=== PATIENT | female | born 1960 | race Caucasian/White ===

== ENCOUNTER 2016-06-29 08:25 | Emergency (ER) | payer OTHER ==
[2016-06-29 08:57] VITALS: BP 137/87
--- NOTE | 2016-06-29 09:36 | UC ---
Respiratory Complaint HPI - HPI Summary HPI Summary: Dry cough, fevers between 100-101F, pain in chest & head with cough, mild stomach upset, nasal congestion without drainage starting 5 days ago. Tried going back to work today but did not feel well enough. Last fever last night 100.4F. - History of Current Complaint Chief Complaint: UCGeneralIllness Stated Complaint: SORE THROAT CONGESTION Time Seen by Provider: 06/29/16 09:11 Hx Obtained From: Patient ?: No Onset/Duration: Gradual Onset, Lasting Days Timing: Constant Severity Initially: Moderate Severity Currently: Moderate Pain Intensity: 0 Pain Scale Used: 0-10 Numeric Character: Cough: Productive Aggravating Factors: Deep Breaths, Recumbent Position Alleviating Factors: Upright Position Associated Signs And Symptoms: Positive: Fever, Chills, Nasal Congestion. Negative: Wheezing - Allergies/Home Medications Allergies/Adverse Reactions: Allergies Allergy/AdvReac Type Severity Reaction Status Date / Time No Known Allergies Allergy Verified 02/05/15 07:15 Home Medications: Home Medications Hydrochlorothiazide [Microzide-] 25 mg 06/29/16 [History] Losartan Potassium [Cozaar] 06/29/16 [History] Pseudoephedrine-Guaifenesin [Mucinex D 60-600 mg] 06/29/16 [History] PMH/Surg Hx/FS Hx/Imm Hx Endocrine History Of: Denies: Diabetes Cardiovascular History Of: Reports: Hypertension - MEDICATION CONTROLLED Denies: Congestive Heart Failure Respiratory History Of: Denies: COPD, Asthma GI/ History Of: Denies: Renal Disease Cancer History Of: Denies: Breast Cancer - Surgical History Surgical History: Yes Surgery Procedure, Year, and Place: [id number] [facility] 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 Alcohol Use: Occasionally Substance Use Type: None Smoking Status (MU): Never Smoked Tobacco Review of Systems Constitutional: Fever, Chills Skin: Negative Eyes: Negative ENT: Sore Throat, Other - stuffy nose Respiratory: Cough Cardiovascular: Negative Gastrointestinal: Negative Genitourinary: Negative Motor: Negative Neurovascular: Negative Musculoskeletal: Negative Neurological: Negative Psychological: Negative All Other Systems Reviewed And Are Negative: Yes Physical Exam Triage Information Reviewed: Yes Appearance: Well-Appearing, Well-Nourished, Pain Distress - with cough Vital Signs: Initial Vital Signs Temp 97.7 F 06/29/16 08:51 Pulse 70 06/29/16 08:51 Resp 18 06/29/16 08:51 BP 137/87 06/29/16 08:51 Pulse Ox 98 06/29/16 08:51 Eye Exam: Normal Eyes: Positive: Conjunctiva Clear ENT: Positive: Hearing grossly normal, Pharynx normal, Nasal congestion, TMs normal Dental Exam: Normal Neck exam: Normal Neck: Positive: Supple, Nontender, No Lymphadenopathy Respiratory Exam: Other - frequent dry and productive cough Respiratory: Positive: No respiratory distress, No accessory muscle use, Rhonchi - clear with cough Cardiovascular Exam: Normal Cardiovascular: Positive: RRR, No Murmur Musculoskeletal Exam: Normal Neurological Exam: Normal Psychological Exam: Normal Skin Exam: Normal UC Diagnostic Evaluation - Laboratory O2 Sat by Pulse Oximetry: 98 Respiratory Course/Dx - Differential Dx/Diagnosis Provider Diagnoses: influenza Discharge - Discharge Plan Condition: Stable Disposition: HOME Prescriptions: Benzonatate CAP* [Tessalon CAP*] 100 mg PO TID PRN #30 cap PRN Reason: Cough Guaifenesin-Codeine [Guaiatussin AC] 5 - 10 ml PO Q6H #240 ml MDD 40mL Patient Education Materials: Influenza (ED) Forms: *Work Release Referrals: Omar Colon MD [Primary Care Provider] - If Needed Additional Instructions: Call or return if you develop increasing fever, shortness of breath, chest pain , bloody sputum, or otherwise worsen. If you have not improved at all after several days, contact your primary care physician or return here.
== END 2016-06-29 09:31 | disposition home or self-care (01) ==
LOC: UCEAST 08:25
DX: J11.1 Influenza due to unidentified influenza virus with other respiratory manifestations (principal); I10 Essential (primary) hypertension
CPT/HCPCS: 99212; G0463

== ENCOUNTER 2016-12-01 09:09 | Emergency (ER) | payer OTHER ==
[2016-12-01 09:18] VITALS: BP 145/77
--- NOTE | 2016-12-01 09:58 | RAD ---
INDICATION: Left ankle injury. TECHNIQUE: 3 views of the left ankle were obtained. FINDINGS: Soft tissue swelling is noted along the anterolateral aspect of the ankle. There is a small curvilinear bony density adjacent to the distal fibular tip most consistent with a small nondisplaced avulsion fracture fragment. Joint spaces appear maintained. IMPRESSION: SOFT TISSUE SWELLING AND SMALL AVULSION FRACTURE FRAGMENT ARISING FROM THE DISTAL FIBULA.
[2016-12-01] MEDS ORDERED: Acetaminophen TAB* 325 MG PO ONE (10:03)
--- NOTE | 2016-12-01 10:03 | RAD ---
Indication: Medial proximal fibula pain following ankle injury. Comparison: Ankle of the same day. Technique: AP and lateral views LEFT lower leg. Report: Subtle avulsion fracture at the caudal margin of the lateral malleolus with overlying soft tissue swelling. Suggestion of a nonossifying fibroma at the lateral posterior aspect of the distal metaphysis and lateral malleolus of the fibula measuring up to 4.8 cm cephalocaudal by 1.0 cm AP by 0.7 cm transverse. While the appearance is not entirely specific the lesion demonstrates a well-defined transition zone with thin sclerotic margin consistent with benign etiology. No more proximal fracture of the ulna or fracture of the tibia evident. Normal articular alignment. IMPRESSION: 1. Subtle nondisplaced avulsion fracture caudal margin lateral malleolus. No additional fracture of the fibula or tibia. 2. 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
--- NOTE | 2016-12-01 10:08 | UC ---
Dary Ash Thomas, scribed for Darlin Madison MD on 12/01/16 at 0935 . Lower Extremity/Ankle HPI - HPI Summary HPI Summary: The pt is a 56 y/o F accompanied by her mother and presenting to [facility] [place] c/o L ankle pain for the last 2 days s/p rolling it inward while walking along roadside for exercise. The pain began immediately after the injury. Her pain is in her ankle, although she notes that some pain radiates upward, toward knee. She rates the pain 5/10 and describes the pain as an ache and tightness. The pain is alleviated by ice and medication (Motrin, 800mg). The pain is worsened by exercise, standing, and ambulation. Pt additionally c/o toe numbness , L leg swelling, and abrasion to R knee. Pt denies head trauma, blood out of ear, syncope, LOC. She is on baby aspirin at home. Since her fall, she has been walking with a limp secondary to the pain. No analgesia today. No weakness. tdap utd pt thinks - will confirm with PCP in November at scheduled appt PMHx: L ankle Fx (8 years ago), HTN. PSHx: hysterectomy, CSP fusion, and lower back laminectomies. SHx: no tobacco, occasional alcohol, no illicit drugs. FHx: HTN. She believes that her last tetanus shot was within the last 10 years, but she is unsure. Patients medication reviewed this visit. - History of Current Complaint Chief Complaint: UCLowerExtremity Stated Complaint: ANKLE INJURY Time Seen by Provider: 12/01/16 09:18 Hx Obtained From: Patient, Family/Manager French - mother in room Onset/Duration: Sudden Onset, Lasting Days - 2 days s/p rolling ankle, Still Present Severity Currently: Moderate Pain Intensity: 5 Pain Scale Used: 0-10 Numeric Aggravating Factor(s): Standing, Ambulation, Other - POS: movement Alleviating Factor(s): Ice, OTC Meds Related History: Other - everted - Allergies/Home Medications Allergies/Adverse Reactions: Allergies Allergy/AdvReac Type Severity Reaction Status Date / Time No Known Allergies Allergy Verified 07/08/16 09:07 Home Medications: Home Medications Biotin [Biotin Maximum Strength] 10,000 mcg PO DAILY 12/01/16 [History Confirmed 12/01/16] PMH/Surg Hx/FS Hx/Imm Hx Previously Healthy: No - L ankle Fx Cardiovascular History: Hypertension - Surgical History Surgical History: Yes Surgery Procedure, Year, and Place: [id number]. [place] [place]. [place] LAMINECTOMIES L4/L5 [place] [place] Family History Known Family History: Positive: Hypertension - Social History Occupation: Employed Full-time - administrative assistant front desk Alcohol Use: Occasionally Substance Use Type: None Smoking Status (MU): Never Smoked Tobacco Review of Systems Constitutional: Negative Skin: Other - POS: abrasion to R knee, contusion Eyes: Negative ENT: Negative Respiratory: Negative Cardiovascular: Negative Gastrointestinal: Negative Genitourinary: Negative Motor: Negative Neurovascular: Negative Musculoskeletal: Other: - POS: L ankle pain (09/08, onset two days ago s/p rolling it on sidewalk, ache/tightness, relieved by OTC meds and ice, aggravated by movement), L leg swelling Neurological: Numbness - to toes of L feet Psychological: Negative All Other Systems Reviewed And Are Negative: Yes Physical Exam Triage Information Reviewed: Yes Appearance: Well-Appearing, No Pain Distress, Well-Nourished Vital Signs: Initial Vital Signs Temp 97.4 F 12/01/16 09:15 Pulse 70 12/01/16 09:15 Resp 16 12/01/16 09:15 BP 145/77 12/01/16 09:15 Pulse Ox 100 12/01/16 09:15 Vital Signs Reviewed: Yes Eye Exam: Normal Eyes: Positive: Conjunctiva Clear ENT Exam: Normal ENT: Positive: Normal ENT inspection, Hearing grossly normal, Pharynx normal, TMs normal Neck exam: Normal Neck: Positive: Supple, Nontender Respiratory Exam: Normal Respiratory: Positive: Chest non-tender, Lungs clear, Normal breath sounds, Other: - 2+ DP, PT CBT <2 sec Cardiovascular Exam: Normal Cardiovascular: Positive: RRR, No Murmur, Pulses Normal Musculoskeletal: Positive: Other: - + SLE left without pain No pain with palpation, ligament testing left knee no edema left knee + TTP left lateral malleolus. Mild ecchymosis and edema + flex/ext ankle with discomfort lateral edge +great toe extension + flex/ext toes without pain No pain aling tarsal, metatarsals Neurological: Positive: Other: - + sensation throughout foot Psychological Exam: Normal Skin: Positive: Other - abrasion right knee - non suturable, scabbed no erythema , discharge Diagnostics - Radiology Ankle XR Xray Interpretation: Positive (See Comments) - SOFT TISSUE SWELLING AND SMALL AVULSION FRACTURE FRAGMENT ARISING FROM THE DISTAL FIBULA. Radiology Interpretation Completed By: Radiologist XR Lower Extremity Xray Interpretation: Positive (See Comments) - 1. Subtle nondisplaced avulsion fracture caudal margin lateral malleolus. No additional fracture of the fibula or tibia. 2. 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 Radiology Interpretation Completed By: Radiologist Re-Evaluation - Re-Evaluation First Eval Re-Evaluation Time: 10:07 Change: Unchanged Comment: Informed of XR results. reji. air splint. crutches. apap. work note Lower Extremity Course/Dx - Course Course Of Treatment: The patient is a 56 y/o F presenting to [facility] c/o L ankle pain s/p rolling her ankle on the sidewalk two days ago. Blood pressure noted and patient informed to follow up with PCP. Pt thinks tdap is UTD - will follow -up with PCP. She will follow up with Dr. Fairchild, previously seen for ankle. reji. ice. crutches. air splint. work note. motrin/apap - Differential Dx/Diagnosis Provider Diagnoses: left distal fibular avulsion fracture Discharge - Discharge Plan Condition: Stable Disposition: HOME Patient Education Materials: Avulsion Fracture (ED) Forms: *Work Release Referrals: Kayode Fairchild MD [Medical Doctor] - 3 Days Additional Instructions: -wear reji wrap for comfort and support. -use crutches until you can walk normally without a limp -apply ice (20 min at a time) every 2-3 hours for the next 2 days - Okay to alternate ibuprofen (Advil, Motrin) and tylenol every 3 hours for pain. Take with food -Elevate your leg - this will help with swelling and pain -Contact Dr. Fairchild, your orthopedic surgeon, to arrange a follow-up this week. Contact your doctor or return with questions or concerns The documentation as recorded by the Dary spence Thomas accurately reflects the service I personally performed and the decisions made by me, Darlin Madison MD.
== END 2016-12-01 10:16 | disposition home or self-care (01) ==
LOC: UCEAST 09:09
DX: S82.65XA Nondisplaced fracture of lateral malleolus of left fibula, initial encounter for closed fracture (principal); S80.211A Abrasion, right knee, initial encounter; W18.39XA Other fall on same level, initial encounter; Y93.01 Activity, walking, marching and hiking; Y92.89 Other specified places as the place of occurrence of the external cause; I10 Essential (primary) hypertension; Z90.710 Acquired absence of both cervix and uterus
CPT/HCPCS: 99213; A9270-GY; G0463

== ENCOUNTER 2017-06-29 08:57 | Day surgery (SDC) | payer OTHER ==
[~2017-06-29 08:57] MED LIST: Acetaminophen TAB* 325 MG PO PRN; Buffered Lidocaine 0.9% SYRIN* 5 ML/SYR SYRINGE INTRADERM ONE; Cyclopentolate 1% OPTH.SOL* 2 ML BTL ONE; Ketorolac 0.5% OPHTH (NF) 0.5 % 5 ML BTL ONE; Lidocaine 1% MPF* 2 ML VIAL ONE; Lidocaine 2% EPI 1:200000 MPF* 20 ML VIAL ONE; Midazolam* 1 MG/ML 2 ML VIAL (2 MG) ONE; Neomycin/Polymy/Dex OPTH.SUSP* MAXITROL 0.1% 5 ML ONE; Phenylephrine 2.5% OPTH.SOL* 2 ML BTL ONE; Povidone Iodine 5% OPTH* 30 ML BTL ONE; Proparacaine 0.5% OPHTH.SOL* 15 ML BTL ONE; acetaZOLAMIDE TAB* 250 MG ONE
[2017-06-29] MEDS ORDERED: Midazolam* 1 MG/ML 2 ML VIAL (2 MG) ONE (11:15)
[2017-06-29 11:59] VITALS: BP 149/80
--- NOTE | 2017-06-29 14:25 | OP ---
DATE OF OPERATION: 06/29/2017. DATE OF : 1960. SURGEON: Florentino Owen M.D. PREOPERATIVE DIAGNOSIS: Cataract right eye. POSTOPERATIVE DIAGNOSIS: Cataract right eye. OPERATIVE PROCEDURE: Extracapsular cataract extraction with intraocular lens implant right eye. PROCEDURE: The patient was brought to the operating room after being given 1/2% Alcaine with epineph rine drops in the preoperative area. The eye was prepped and draped in the usual sterile fashion. S terile drape and eyelid speculum were placed. Again, topical 1/2% Alcaine with epinephrine was given . A paracentesis incision was made at the 9 o'clock position with the No.75 blade. Clear cornea inc ision 2.2 x 2.2-mm was created at the 12 o'clock position starting at the anterior limbus using the 2 .2-mm keratome. The anterior chamber was irrigated with 0.4 mL of 1% non-preservative intracameral l idocaine and filled with DisCoVisc. A capsulorrhexis was completed using the cystotome and the Utrat a forceps. Hydrodissection was performed with balanced salt solution. The lens nucleus was removed w ith the Phacoemulsification handpiece without incident. Cortex was removed with the irrigation-aspir ation handpiece. The capsular bag was re-inflated using DisCoVisc and an [id number] implant was inser aziza with the shooter, oriented to the 101 degree meridian. Horizontal reference shaikh made with the patient in the seated position in the preoperative area. The irrigation-aspiration handpiece was use d to remove all residual DisCoVisc. The eye was refilled with balanced salt solution and the wound c hecked and found to be watertight. Topical Maxitrol drops were given. [id number]/[facility] #: [id number]
== END 2017-06-29 11:52 | disposition home or self-care (01) ==
LOC: OREAST 08:57
PROVIDERS: ATTEND Specialist
DX: H25.11 Age-related nuclear cataract, right eye (principal); H53.022 Refractive amblyopia, left eye; I10 Essential (primary) hypertension; Z68.29 Body mass index [BMI] 29.0-29.9, adult
CPT/HCPCS: A9270-GY; J2250; V2787

== ENCOUNTER 2017-07-06 06:41 | Day surgery (SDC) | payer OTHER ==
[~2017-07-06 06:41] MED LIST changes: -Cyclopentolate 1% OPTH.SOL* 2 ML BTL ONE; -Ketorolac 0.5% OPHTH (NF) 0.5 % 5 ML BTL ONE; -Lidocaine 1% MPF* 2 ML VIAL ONE; -Lidocaine 2% EPI 1:200000 MPF* 20 ML VIAL ONE; -Midazolam* 1 MG/ML 2 ML VIAL (2 MG) ONE; -Neomycin/Polymy/Dex OPTH.SUSP* MAXITROL 0.1% 5 ML ONE; -Phenylephrine 2.5% OPTH.SOL* 2 ML BTL ONE; -Povidone Iodine 5% OPTH* 30 ML BTL ONE; -Proparacaine 0.5% OPHTH.SOL* 15 ML BTL ONE; -acetaZOLAMIDE TAB* 250 MG ONE
[2017-07-06] MEDS ORDERED: Midazolam* 1 MG/ML 2 ML VIAL (2 MG) ONE ×2 (07:45→08:01)
[2017-07-06 08:48] VITALS: BP 140/70
[2017-07-06] MEDS ORDERED: acetaZOLAMIDE TAB* 250 MG ONE (12:07)
[2017-07-06] MEDS ORDERED: Lidocaine 2% EPI 1:200000 MPF* 20 ML VIAL ONE (12:07)
[2017-07-06] MEDS ORDERED: Cyclopentolate 1% OPTH.SOL* 2 ML BTL ONE (12:07)
[2017-07-06] MEDS ORDERED: Neomycin/Polymy/Dex OPTH.SUSP* MAXITROL 0.1% 5 ML ONE (12:07)
[2017-07-06] MEDS ORDERED: Ketorolac 0.5% OPHTH (NF) 0.5 % 5 ML BTL ONE (12:07)
[2017-07-06] MEDS ORDERED: Phenylephrine 2.5% OPTH.SOL* 2 ML BTL ONE (12:07)
[2017-07-06] MEDS ORDERED: Povidone Iodine 5% OPTH* 30 ML BTL ONE (12:07)
[2017-07-06] MEDS ORDERED: Lidocaine 1% MPF* 2 ML VIAL ONE (12:07)
[2017-07-06] MEDS ORDERED: Proparacaine 0.5% OPHTH.SOL* 15 ML BTL ONE (12:08)
--- NOTE | 2017-07-06 20:10 | OP ---
DATE OF OPERATION: 07/06/17 [facility] DATE OF : 60 SURGEON: Florentino Owen M.D. PREOPERATIVE DIAGNOSIS: Cataract, left eye. POSTOPERATIVE DIAGNOSIS: Cataract, left eye. OPERATIVE PROCEDURE: Extracapsular cataract extraction with intraocular lens implant left eye. DESCRIPTION OF PROCEDURE: The patient was brought to the operating room after being given 1/2% Alcaine with epinephrine drops in the preoperative area. The eye was prepped and draped in the usual sterile fashion. Sterile drape and eyelid speculum were placed. Again, topical 1/2% Alcaine with epinephrine was given. A paracentesis incision was made at the 3 o'clock position with the No.75 blade. Clear cornea incision 2.2 x 2.2-mm was created at the 6 o'clock position starting at the anterior limbus using the 2.2-mm keratome. The anterior chamber was irrigated with 0.4 mL of 1% non-preservative intracameral lidocaine and filled with DisCoVisc. A capsulorrhexis was completed using the cystotome and the Utrata forceps. Hydrodissection was performed with balanced salt solution. The lens nucleus was removed with the Phacoemulsification handpiece without incident. Cortex was removed with the irrigation-aspiration handpiece. The capsular bag was re-inflated using DisCoVisc and an [id number] implant was inserted with the shooter oriented to the 104-degree meridian. The irrigation-aspiration handpiece was used to remove all residual DisCoVisc. The eye was refilled with balanced salt solution, and the wound checked and found to be watertight. Topical Maxitrol drops were given. [id number]/[facility] #: [id number] [facility] [place]
== END 2017-07-06 08:37 | disposition home or self-care (01) ==
LOC: OREAST 06:41
PROVIDERS: ATTEND Specialist
DX: H25.12 Age-related nuclear cataract, left eye (principal); H53.022 Refractive amblyopia, left eye; I10 Essential (primary) hypertension; E66.3 Overweight
CPT/HCPCS: A9270-GY; J2250; V2787

== ENCOUNTER 2017-11-25 06:54 | Day surgery (SDC) | payer OTHER ==
[~2017-11-25 06:54] MED LIST changes: -Acetaminophen TAB* 325 MG PO PRN
[2017-11-25] MEDS ORDERED: ceFAZolin 2 GM PREMIX (*) 2 GM/50 ML BAG IVPB ONE (07:04)
[2017-11-25] MEDS ORDERED: Bupivacaine 0.5% PF 10 ML VIAL INJ ONE (08:08)
[2017-11-25] MEDS ORDERED: EPINEPHRINE 1 MG/ML 1 ML VIAL ONE (08:08)
[2017-11-25] MEDS ORDERED: Rocuronium* 10 MG/ML VIAL ONE (09:15)
[2017-11-25] MEDS ORDERED: Midazolam* 1 MG/ML 2 ML VIAL (2 MG) ONE (09:16)
[2017-11-25] MEDS ORDERED: fentaNYL* 50 MCG/ML 2 ML VIAL (100 MCG VIAL) ONE (09:17)
[2017-11-25] MEDS ORDERED: Sterile Water for Inj* 10 ML ONE (09:20)
[2017-11-25] MEDS ORDERED: EPINEPHrine SYR 0.1 MG/ML* (1:10,000) SYRINGE ONE (09:20)
[2017-11-25] MEDS ORDERED: ROPIVACAINE 5 MG/ML 30 ML BTL (0.5%) ONE (09:29)
[2017-11-25] MEDS ORDERED: Lidocaine 2% PF * 5 ML VIAL ONE ×2 (09:29→16:19)
[2017-11-25] MEDS ORDERED: Dexamethasone IV* 4 MG/ML 1 ML (4 MG) ONE (10:56)
[2017-11-25] MEDS ORDERED: Naloxone* 0.4 MG/ML 1 ML VIAL IV PRN (11:55)
[2017-11-25] MEDS ORDERED: Acetaminophen TAB* 325 MG PO PRN (11:55)
[2017-11-25] MEDS ORDERED: HYDROmorphone INJ* 0.5 MG/0.5 ML SYRINGE IV PRN (11:55)
[2017-11-25] MEDS ORDERED: Metoclopramide IV* 5 MG/ML 2 ML VIAL IV PRN (11:55)
[2017-11-25] MEDS ORDERED: EPHEDrine (Pressors)* 50 MG/ML VIAL ONE (12:13)
[2017-11-25] MEDS ORDERED: HYDROmorphone INJ* 0.5 MG/0.5 ML SYRINGE ONE ×2 (12:21→13:59)
[2017-11-25] MEDS ORDERED: Ketorolac INJ* 30 MG/ML 1 ML VIAL ONE (12:22)
[2017-11-25] MEDS ORDERED: Ondansetron INJ* 2 MG/ML VIAL ONE (12:22)
[2017-11-25] MEDS ORDERED: Glycopyrrolate IV* 0.2 MG/ML 1 ML VIAL ONE ×2 (12:39→12:45)
[2017-11-25] MEDS ORDERED: Neostigmine Methylsulfate* 2 MG/2 ML SYRINGE ONE (12:39)
[2017-11-25] MEDS ORDERED: Acetaminophen TAB* 325 MG ONE (13:59)
[2017-11-25 14:40] VITALS: BP 126/78
[2017-11-25] MEDS ORDERED: Propofol* 10 MG/ML 20 ML BTL IV PUSH ONE (16:19)
--- NOTE | 2017-11-28 04:47 | OP ---
DATE OF OPERATION: 11/25/17 - [facility] DATE OF : 60 SURGEON: Neftali Ritter MD CAKE INSPECTOR: None. ANESTHESIOLOGIST: Wanda Torres DO ANESTHESIA: General anesthesia, regional interscalene block anesthesia, local anesthesia, 10 cc of Marcaine 0.5% without epinephrine. PRE-OP DIAGNOSES: 1. Right shoulder subacromial bursitis and impingement. 2. Right shoulder possible superior labral tear. 3. Right shoulder ganglion adjacent to infraspinatus rotator cuff tendon. 4. Right shoulder AC joint arthritis. POST-OP DIAGNOSES: 1. Right shoulder subacromial bursitis and impingement. 2. Right shoulder superior labral tear. 3. Right shoulder ganglion adjacent to infraspinatus rotator cuff tendon. 4. Right shoulder AC joint arthritis. 5. Right shoulder calcification adjacent to infraspinatus tendon. 6. Right shoulder undersurface partial thickness supraspinatus rotator cuff tendon tear. OPERATIVE PROCEDURE: 1. Right shoulder arthroscopic extensive debridement with debridement of undersurface supraspinatus partial thickness rotator cuff tear, debridement of superior labrum tear, debridement of calcification on the bursal side of the infraspinatus tendon, and extensive probing of infraspinatus with debridement in location of ganglion. 2. Right shoulder arthroscopic subacromial decompression. 3. Right shoulder arthroscopic distal clavicle resection. 4. Right shoulder open proximal biceps tenodesis, subpectoral. ANTIBIOTICS: Ancef 2 g IV. IV FLUIDS: 1200 cc crystalloid. [id number] TIME: 96 minutes. ARTHROSCOPIC FLUID USED: 7.3 bags each with 3 L for a total of 22 L. SPECIMEN: None. IMPLANTS: Biceps, proximal, Arthrex unicortical metal button, titanium. COMPLICATIONS: None. ESTIMATED BLOOD LOSS: Minimal. 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 She tried to move a cabinet at work and subsequently that evening developed pain about the right shoulder that awakened her at night. She responded insufficiently to non-operative management. Preoperative MRI showed a ganglion about the superior aspect, superficial bursal aspect of the infraspinatus tendon without any clear rotator cuff tear. There was a possible superior labral tear. There is some calcification in the rotator cuff tendons, best seen by x-ray, not MRI. The patient opted for surgery. Discussed preoperatively risks and potential complications of surgery including bleeding, infection, nerve or blood vessel injury, shoulder stiffness, pain, osteoarthritis. DESCRIPTION OF PROCEDURE: Preoperative written consent was signed. Operative extremity was marked in preoperative holding. The patient underwent a regional interscalene block by anesthesia. The patient was taken to the operating room, placed supine on operating room table. The patient was sedated and intubated. The patient was then placed in the lateral decubitus position with the right shoulder up. Axillary roll placed. Beanbag hardened. All bony prominences padded. Appropriate longitudinal traction placed. Right shoulder was prepped and draped. Surgical time-out was performed. I placed a spinal needle into the glenohumeral joint from posterior. I insufflated the joint with 30 cc of normal saline. I made a posterior glenohumeral joint portal using standard technique. I commenced my diagnostic arthroscopy. I immediately noted much fraying on the undersurface of the supraspinatus, which was not expected based on preoperative MRI. Also, noted some fraying on the undersurface of the superior labrum. I established an anterior portal under direct visualization. I entered an arthroscopic shaver. I evaluated the subscapularis. I first time thought there might be an uncovered area of footprint but I did not believe that was uncovered footprint more likely to be just an area of defective articular cartilage. The subscapularis appeared fully intact. I next evaluated the biceps tendon which did not appear to have tearing or fraying to it. The superior labrum, however, did have much degeneration to it with a left off of approximately 5 mm and decided therefore to release it. Using a biter from anteriorly, I did a biceps release and with an arthroscopic shaver, smoothed down the superior labrum. I assessed the undersurface of the supraspinatus and infraspinatus. There was much fraying present, but at first did not appear to be any exposed footprint. I used an arthroscopic shaver to smooth out to this frayed tissue. It seemed that lateral to the rotator cuff cable, there was significant fraying of the rotator cuff crescent tissue. I smoothed this out. It appeared that at most there was 5 mm of footprint visible in some areas of the anterior supraspinatus but more posteriorly in the posterior supraspinatus and the infraspinatus that was even less of thickness of tear. I probed this for some time and decided that on the basis of that tear alone, she would not require a repair. I removed instruments from the glenohumeral joint as well as fluid. I entered the subacromial space from posterior and anterior. I established a lateral subacromial portal under direct visualization. I debrided bursitis from the subacromial space using arthroscopic shaver. I then established a postero-lateral portal under direct visualization. No clear rotator cuff tear was visible about the supra or infraspinatus. There was some raw-looking surface to the infraspinatus, but no torn tissue visible. I probed the tendon back to its musculo-tendinous junction and there was no tear visible or palpable with arthroscopic probe. At the superior most aspect of the infraspinatus or the anterior most aspect of the infraspinatus are with an area of calcification. I debrided this with an arthroscopic probe and released this all. I then visualized and probed the supraspinatus and infraspinatus and found no significant tear. At the posterior most aspect of the supraspinatus, there was 1 area where the probe went into the tendon but it did not go all the way through. Therefore, I decided that it was not sensical to take down the tendon and do a repair. The patient only had low-grade tearing in the supraspinatus and infraspinatus. I debrided the undersurface of the acromion of the soft tissue with a VAPR and then performed a subacromial decompression with an arthroscopic oriana entered from lateral. I then addressed the AC joint. I debrided the synovitic tissue of that with the VAPR and then debrided 8 mm of the distal under the clavicle with an arthroscopic oriana. I then closed the skin incisions with [id number] and [id number] stitches using nylon 3-0 suture. We next softened the beanbag and turned the patient from lateral decubitus to supine. I did this with anesthesia watching head and neck carefully. We reinflated the beanbag. I monitored all appropriate landmarks and then made a longitudinal incision over the anteromedial right upper arm, centered at the distal and the pectoralis major tendon. My incision is approximately 4 cm in length. I dissected down to the pectoralis major tendon and followed it to the bicipital groove. Retractors placed. I pulled the long head of the biceps tendon from the wound. I placed my pin unicortically in the anterior humerus. I placed 3 stitches in the biceps tendon ending at the correct level for a good length tension relationship postoperative. I loaded my Biceps Button. I placed the button unicortically and then flipped it. I tied a knot. I then with the free needle placed another knot through the tendon. Next, released excess tendon and suture. Irrigation. Closure of the wound with buried simple stitches using Vicryl 3-0 suture. Closure of the subcuticular layer with a running stitch using Monocryl 4-0 suture. Mastisol, Steri-Strips, 4x4, Tegaderm. Next , closed the arthroscopic skin incisions with Xeroform, 4x4s, ABDs and foam tape. A sling was placed without abduction pillow and a cooling unit. The patient was awakened, extubated and transferred to the PACU. DISPOSITION: The patient will start physical therapy immediately postoperatively. She was given Percocet p.r.n., Keflex for 3 days, and aspirin x2 weeks postoperatively. She will follow up with me in clinic in 10 to 14 days postoperatively. [id number]/[facility] #: [id number] MTDD
== END 2017-11-25 15:25 | disposition home or self-care (01) ==
LOC: OR 06:54
PROVIDERS: ATTEND Orthopaedic Surgery
DX: S43.431A Superior glenoid labrum lesion of right shoulder, initial encounter (principal); S46.011A Strain of muscle(s) and tendon(s) of the rotator cuff of right shoulder, initial encounter; X50.0XXA Overexertion from strenuous movement or load, initial encounter; Y93.89 Activity, other specified; Y92.89 Other specified places as the place of occurrence of the external cause; Y99.0 Civilian activity done for income or pay; M75.41 Impingement syndrome of right shoulder; M75.51 Bursitis of right shoulder; M19.011 Primary osteoarthritis, right shoulder; M67.411 Ganglion, right shoulder; G89.18 Other acute postprocedural pain; I10 Essential (primary) hypertension
CPT/HCPCS: A9270-GY; C1776; J0171; J0690; J1100; J1170; J1885; J2250; J2405; J2704; J2795; J3010

== ENCOUNTER → 2019-04-20 06:52 | Day surgery (SDC) | payer OTHER ==
[~2019-04-20 06:52] MED LIST changes: -Buffered Lidocaine 0.9% SYRIN* 5 ML/SYR SYRINGE INTRADERM ONE; +Buffered Lidocaine 1% SYRIN* 1 ML/SYRINGE INTRADERM ONE; +Bupivacaine 0.5%* 50 ML MDV VIAL ONE; +Dexamethasone IV* 4 MG/ML 1 ML (4 MG) ONE; +Ketorolac INJ* 30 MG/ML 1 ML VIAL ONE; +Lactated Ringers 1000 ML Bag* 1,000 ML IV SCH; +Lidocaine 1% INJ* 10 MG/ML 30 ML SDV ONE; +Lidocaine 2% PF * 5 ML VIAL ONE; +Lidocaine 2.5%/Prilocain 2.5%* 5 GM TUBE ONE; +Losartan TAB* 25 MG PO ONE; +Midazolam* 1 MG/ML 2 ML VIAL (2 MG) ONE; +Naloxone* 0.4 MG/ML 1 ML VIAL IV PRN; +Ondansetron INJ* 2 MG/ML VIAL IV PRN; +Propofol* 10 MG/ML 20 ML BTL ONE; +Sodium Citrate/Citric Acid* 15 ML UDC ONE; +Sodium Citrate/Citric Acid* 15 ML UDC PO ONE; +ceFAZolin 2 GM in NS PREMIX(*) 2 GM/100 ML BAG IVPB ONE; +fentaNYL* 50 MCG/ML 2 ML VIAL (100 MCG VIAL) ONE; +oxyCODONE/Acetamin 5/325 MG* TAB ONE; +oxyCODONE/Acetamin 5/325 MG* TAB PO ONE
--- NOTE | 2019-04-20 13:54 | BRIEFOPN ---
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 Tawanna Sanchez MD. Assist: DAVID Keyes Anesthesia: GETA Estimated Blood Loss: <50cc Findings: As above Specimen(s)/Culture(s) Description: Left breast tissue Complications: None
[2019-04-20] MEDS: fentaNYL* 50 MCG/ML 2 ML VIAL (100 MCG VIAL) IV PRN ×2 (14:18→14:27)
[2019-04-20 15:02] VITALS: BP 135/76
--- NOTE | 2019-04-20 20:56 | OP ---
CC: Dr. Colon; Dr. Keagan Finley* OPERATIVE REPORT: DATE OF OPERATION: 04/20/19 - [facility] DATE OF : 60 SERVICE: General Surgery. SURGEON: Tawanna Sanchez MD MANUFACTURER: DAVID Prescott ANESTHESIOLOGIST: Dr. Arthur Aquino. ANESTHESIA: LMA. PRE-OP DIAGNOSIS: Left breast ductal carcinoma in situ. POST-OP DIAGNOSIS: Left breast ductal carcinoma in situ. OPERATIVE PROCEDURE: Left breast needle-localized lumpectomy. ESTIMATED BLOOD LOSS: Minimal, less than 10 cc. SPECIMEN: Left breast lumpectomy. INDICATIONS FOR SURGERY: Ms. English is a very pleasant 58-year-old female who was found to have an abnormality on her routine screening mammogram. This abnormality was biopsied and it was confirmed to be DCIS in the left breast. Therefore, she gave informed consent for a left breast needle-localized lumpectomy. She understood that the risks included, but were not limited to bleeding, infection, injury to nearby structures with a possibility for reexcision based on the final pathology. She understood the alternatives and benefits as well and she wished to proceed. DESCRIPTION OF PROCEDURE: The patient was brought back to the operating room and placed on the operating room table in a supine position. Sequential compression devices were placed in the bilateral lower extremities for DVT prophylaxis. Antibiotics were administered. LMA anesthesia was induced. The patient's left breast was prepped and draped in normal sterile fashion. The wire that was coming from the breast was clipped near the skin and after this, her left breast was prepped and draped in normal sterile fashion. A time-out was performed verifying the patient's name, date of and the procedure to be performed and then a local anesthesia consisting of 0.5% Marcaine and 1% lidocaine was infiltrated into the subdermal layer and the breast tissue around the area of the wire. Next, an elliptical incision was made surrounding the wire, which was in the left outer quadrant at approximately 4 o'clock. The skin where the biopsy scar was located was also excised with the incision. The skin was divided down to the subcutaneous tissue and then flaps were raised around inferiorly and superiorly. A cone of breast tissue was taken surrounding the wire, deep into the breast tissue. Once this lumpectomy specimen was excised, it was marked with a pair of sutures with a short suture at the superior border, medium length suture at the medial border, and a long suture at the lateral border. After this, the specimen was carried through mammography where it was confirmed the abnormality and the clip was placed within the specimen. Hemostasis was then obtained in the breast cavity. Irrigation was also performed and approximately 10 cc of local anesthesia was used to infiltrate into the cavity. The subdermal layer was closed using interrupted 3- 0 Vicryl sutures, the skin was closed using a running 4-0 Monocryl suture. Sterile dressing was then placed. The patient was awoken from anesthesia and she was taken to the PACU in stable condition. At the end of the case, all counts were correct and I was present during the entirety of the case. [id number]/CPS #: [id number]
== END | disposition home or self-care (01) ==
LOC: SDS 06:52
PROVIDERS: ATTEND Surgery
DX: D05.12 Intraductal carcinoma in situ of left breast (principal); I10 Essential (primary) hypertension
CPT/HCPCS: 88307; A9270-GY; J0690; J1100; J1885; J2250; J2704; J3010; J3490